=== PATIENT | female | born 1965 | race Caucasian/White ===

== ENCOUNTER 2018-05-18 04:49 | Inpatient (IN) | payer OTHER ==
[~2018-05-18] VITALS: Ht 177.8 cm; Wt 113.4 kg
[2018-05-18] MEDS ORDERED: METFORMIN HCL500 M2 PO (05:38)
[2018-05-18] MEDS ORDERED: LOSARTAN-HCTZ1 EAC2 PO (05:38)
[2018-05-18] MEDS ORDERED: PRAVASTATIN SOD10 MG PO (05:39)
[2018-05-18] MEDS ORDERED: SERTRALINE HCL50 MG PO (05:39)
--- NOTE | 2018-05-18 09:00 | NUR ---
PATIENT TO FLOOR, APPLIED SCDS, AND PROVIDED EDUCATION ON SURGERY AND PROVIDED PACKET. PATIENT VERBALIZED UNDERSTANDING. PROVIDED IS. PATIENT NPO. FULL BODY ASSESMENT DONE. NO COMPLAINTS OF PAIN AT THIS TIME. PATIENT RESTING WITH EYES CLOSED, KINJAL AT BEDSIDE.
--- NOTE | 2018-05-18 10:00 | NUR ---
DR. FERRARI ROUNDED ON PATIENT, PLANS FOR SURGERY TODAY. PATIENT DENIES ANY NEEDS AT THIS TIME.
--- NOTE | 2018-05-18 11:12 | NUR ---
PT DECLINED SHOWER. PT WILL WIPE WITH CHLOROHEXADINE WIPES BEFORE SURGERY INSTEAD.
--- NOTE | 2018-05-18 12:25 | NUR ---
MED REC COMPLETE
--- NOTE | 2018-05-18 14:04 | NUR ---
PT USED CHLOROHEXADINE WIPES. NEW GOWN AND SOCKS GIVEN.
--- NOTE | 2018-05-18 15:30 | NUR ---
PATIENT VOIDING 200 PLUS SOME THAT MISSED HAT. APPEARS CONCENTRATED. NOTIFIED DR. FERRARI, NEW ORDER FOR LR BOLUS. PATIENT RESTING BACK, NO COMPLAINTS OF PAIN. UP AMBULATING IN ROOM. AT BEDSIDE. VS STABLE. STARTED NEW IV TO LEFT HAND FOR SURGERY.
--- NOTE | 2018-05-18 17:04 | NUR ---
PLAN CHANGED FOR PATIENT TO HAVE SURGERY TOMORROW, MAY HAVE CLEAR FLUIDS UNTIL MIDNIGHT. PATIENT TOLERATING WELL. DC RIGHT AC IV, SECONDARY TO EXTREME DISCOMFORT. CBG 141 AT DINNER, NOW ON SLIDING SCALE.
--- NOTE | 2018-05-18 18:14 | NUR ---
PATIENT UP AMBULATING IN HALLS, NOTED RIGHT HAND SWELLING. IMPROVED WITH AMBULATING AND ELEVATING HAND ON PILLOWS. LUNG SOUNDS CLEAR, PATIENT VOIDING ADEQUATE AMOUNTS OF URINE, COLOR IMPROVING. NO COMPLAINTS OF PAIN. CALL LIGHT WITHIN REACH.
--- NOTE | 2018-05-18 20:04 | NUR ---
PATIENT IN BED WATCHING TV WITH AND HAVING NO PAIN. IV INFUSING AND WNL. GIVEN 2 CUPS OF SUGAR FREE JELLO AT PATIENT'S REQUEST.
--- NOTE | 2018-05-18 21:10 | NUR ---
PATIENT RESTING QUIETLY WATCHING TV WITH , GISELL STONE, PATIENT HAS NO C/O PAIN.
--- NOTE | 2018-05-18 21:11 | HP ---
[facility] [address], [place] [address] Signed ADMISSION DATE: 05/18/2018 REASON FOR ADMISSION: Acute calculous cholecystitis. HISTORY OF PRESENT ILLNESS: This 53-year-old morbidly obese woman is accompanied by her . She presented to the emergency room with complaints of lower chest and upper abdominal pain, and back pain, and left shoulder pain, which began last night about 6 o'clock. She has had episodes of abdominal pain in the upper abdomen several times, but these usually been resolved after a day or so of rest. Her evaluation in the emergency room by Dr. Chavez included ultimately a gallbladder ultrasound. Once a cardiac workup was found to be negative for signs of cardiac ischemia. She was noted to have gallstones in the neck of the gallbladder with distended gallbladder. She is admitted for acute calculous cholecystitis. PAST MEDICAL HISTORY: Significant primarily for morbid obesity. She does have diabetes for which she takes metformin. She also has hypertension and dyslipidemia. CURRENT MEDICATIONS: Include: 1. Metformin 1500 mg p.o. daily. 2. Losartan and hydrochlorothiazide 100/12.5 mg p.o. daily. 3. Pravastatin 10 mg p.o. daily. 4. Sertraline 50 mg p.o. daily. SOCIAL HISTORY: She is . She has 4 children. The youngest is 21 years of age. 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 REVIEW OF SYSTEMS: She denies any shortness of breath or chest pain. Abdominal pain has largely subsided at this time. She is quite thirsty, however. PHYSICAL EXAMINATION: GENERAL: This is a morbidly obese white woman, who looks comfortable and is nontoxic at the moment. VITAL SIGNS: Temperature 98.1, pulse 70, blood pressure 130/70, and O2 saturation 96%. NECK: Shows no thyromegaly or cervical adenopathy. Trachea is midline. She has dry mucous membranes. Electronically Signed By: IMANI FERRARI MD 05/18/182110 PATIENT NAME: SHERRIE BARRETT HISTORY AND PHYSICAL DATE OF : 63 REPORT #: [id number] PHYSICIAN: IMANI FERRARI MD PCP: MARCUS SHELBY REPORT IS CONFIDENTIAL AND NOT TO BE RELEASED WITHOUT AUTHORIZATION [facility] [address], [place] [address] Signed CHEST: Shows diminished breath sounds, but no wheeze or rhonchi. HEART: Regular. I detect no murmur. ABDOMEN: Quite morbidly obese, soft. There is mild tenderness in the epigastric and right subcostal area. EXTREMITIES: No clubbing, cyanosis, or edema. LABORATORY DATA: Showed a white count of 9.5, hematocrit 40.8, and platelets 203,000. Ultrasound images were reviewed, which shows at least one single large gallstone in the infundibulum. Gallbladder wall is not thickened. Gallstone shadows quite markedly. ASSESSMENT: Her clinical and ultrasonographic findings are highly consistent with acute calculous cholecystitis. Her lab studies show a normal Chem profile, though glucose was elevated at 246. Her troponin is less than 0.01. Liver enzymes are normal. Amylase is 26. I discussed with him of these illustrations and so forth the pathophysiology of biliary disease and recommendation of treatment to include cholecystectomy, preferably by laparoscopic approach. The risks of bleeding, infection, bile duct injury, need for open procedure, need for common duct exploration either open or laparoscopic were all reviewed in detail. She understands and wished to proceed. At present, she is still somewhat dehydrated. Needs additional fluid administered. She is on antibiotics and her symptoms have improved since admission. We will hope to perform cholecystectomy today if at all possible. MD JON Main/REILLY /[id number] cc: AGAPITO Tom MD Electronically Signed By: IMANI FERRARI MD 05/18/182110 PATIENT NAME: SHERRIE BARRETT LAZARO HISTORY AND PHYSICAL DATE OF : 63 REPORT #: [id number] PHYSICIAN: IMANI FERRARI MD PCP: MARCUS SHELBY REPORT IS CONFIDENTIAL AND NOT TO BE RELEASED WITHOUT AUTHORIZATION [address] [address] Signed Copies: MARCUS SHELBY KELLY DEAN MD ~ Electronically Signed By: IMANI FERRARI MD 05/18/18 2111 PATIENT NAME: MART BARRETTCourt WILLIS HISTORY AND PHYSICAL DATE OF : 63 REPORT #: [id number] PHYSICIAN: IMANI FERRARI MD PCP: MARCUS SHELBY REPORT IS CONFIDENTIAL AND NOT TO BE RELEASED WITHOUT AUTHORIZATION
--- NOTE | 2018-05-18 22:30 | NUR ---
CALLED FOR HADLEY MEDICATION PATIENT ONLY HAD MORPHINE ORDERD FOR PAIN. MOTRIN 600MG PO Q6HRS PRN OR 650MG TYLENOL Q6HRS FOR PAIN ORDERS GIVEN AND READ BACK.
--- NOTE | 2018-05-18 22:55 | NUR ---
PATIENT GOT 600MG PO MOTRIN FOR HER HADLEY AND OTHERWISE IS PAIN FREE. IN THE ROOM ON THE COUCH SLEEPING.
--- NOTE | 2018-05-18 23:18 | EKG ---
[facility] [address] [facility] [place] [address] Signed Normal sinus rhythm Normal ECG No previous ECGs available Confirmed by NANNETTE MONTANO MD ([id number]) on 05/18/2018 11:18:30 PM Electronically Signed By: NANNETTE MONTANO MD 05/18/18 2318 PATIENT NAME: SHERRIE BARRETT LAZARO Electrocardiogram DATE OF : 63 PHYSICIAN: NANNETTE MONTANO MD REPORT #: [id number] REPORT IS CONFIDENTIAL AND NOT TO BE RELEASED WITHOUT AUTHORIZATION
--- NOTE | 2018-05-19 | NUR ---
PATIENT HAS HAD 2 CUPS ICE CHIPS, SOME WATER, AND 6 CUPS OF JELLO AND IS NOW NPO.
--- NOTE | 2018-05-19 02:00 | NUR ---
PATIENT RESTING QUIETLY, RESPIRATIONS EVEN AND REGULAR AT 16, EYES CLOSED, ASLEEP ON THE COUCH.
--- NOTE | 2018-05-19 02:56 | NUR ---
PATIENT ASSESSMENT DONE. PATIENT DOING WELL, NO C/O PAIN, HADLEY GONE. PATIENT SAYS SHE HAS BEEN SLEEPING, BUT UP 2 VOID X2. PATIENT HAS BEEN NPO SINCE MIDNIGHT AND IS GOING TO TRY AND GET SOME MORE SLEEP NOW.
--- NOTE | 2018-05-19 05:20 | NUR ---
PATIENT RESTING QUIETLY, EYES CLOSED, RESPIRATIONS EVEN AND REGULAR AT 16. REMAINS SLEEPING ON THE COUCH. PATIENT HAS BEEN INDEPENDENT ALL NIGHT. GETS HER SELF UP TO THE BATHROOM AND BACK TO BED. NPO SINCE MIDNIGHT. ID-OP CHECKLIST PARTIALLY FILLED OUT FOR SURGERY. LR ON STRAIGHT TUBING IN THE ROOM. PATIENT HAS HAD NO C/O PAIN EXCEPT FOR A HEADACHE THAT WAS FIXED BY SOME MOTRIN.
--- NOTE | 2018-05-19 07:39 | NUR ---
PATIENT RESTING IN BED, CALL LIGHT IN REACH, FAMILY IN ROOM. PATIENT REFUSED AM CARE AT THIS TIME, AM CARE SET UP IN BATHROOM FOR PATIENT TO USE AT A LATER TIME.
--- NOTE | 2018-05-19 07:45 | NUR ---
Pt resting in bed, awoke to verbal stimuli. Pt denies pain. Pt voiding q/s urine output. IV fluids running and scd's intact. Personal supplies and call light within reach. No needs at this time.
--- NOTE | 2018-05-19 09:41 | NUR ---
PATIENT TOOK A SHOWER WITH PRESURGICAL CLEANSE, PATIENT SITTING UP IN BED DRESSED IN CLEAN GOWN, CALL LIGHT IN REACH. NO OTHER NEEDS AT THIS TIME.
--- NOTE | 2018-05-19 10:00 | NUR ---
Pt left unit to surgery.
--- NOTE | 2018-05-19 11:40 | NUR ---
05/19/18 1140 Maria G Langfodr 1134-PATIENT ARRIVED TO PACU ON 6L MASK RR EVEN. PATIENT REACTIVE TO VOICE OPENING EYES. GLUCOSE CHECKED 212. PATIENT NODS HEAD NO WHEN ASKED IF IN PAIN. 4 LAP SITES TO ABDOMEN SMALL AMT OF SHADOWING ON RLQ.
--- NOTE | 2018-05-19 12:40 | NUR ---
PT BACK FROM SURGERY. VITAL SIGNS TAKEN, PT ON 2L OXYGEN PER NC; SAT LEVEL 98%. PT REPORTS PAIN AT 4/10, TOLERABLE. OFFERED WATER, JELLOW AND SOUP. BS TAKEN; WILL ADMIN ONCE PT TOLERATING FOOD. IV FLUIDS RUNNING; LR@125ML/HR. PT AWAKE, ALERT AND ORIENTED.X4 LAP SITES, GLUED AND COVERED; SMALL SHADOWING ON AMILICUS DRESSING. PERSONAL SUPPLIES AND CALL LIGHT WITHIN REACH OF PT. NO NEEDS AT THIS TIME.
--- NOTE | 2018-05-19 14:23 | NUR ---
PATIENT RESTING IN BED, FAMILY IN ROOM. CALL LIGHT IN REACH. NO OTHER NEEDS AT THIS TIME.
--- NOTE | 2018-05-19 14:30 | NUR ---
Pt sleeping at this time, resp even and non labored. 02 sat level 95% on 2l nc. Pt appears to be comfortable at this time. Cont pulse ox intact. vs stable and afebrile. Pt's at bedside. Pt tolerated lunch well. Personal supplies and call light within reach.
--- NOTE | 2018-05-19 15:49 | NUR ---
Pt resting at this time, resp even and non labored. Pt on 2l nc, sat level 96%. Pt appears comfortable, flacc 0/10. Personal supplies and call light within reach. at bedside.
--- NOTE | 2018-05-19 16:41 | NUR ---
PT TOLERATED ONE LAP AROUND UNIT. ONE TAB PERCOCET 7/325MG PO ADMIN FOR 6/10 PAIN. PT ON RA, RESP EVEN AND NON LABORED. SUPPERIOR LAP SITE LEAKING SCANT SAROSANG FLUID. REINFORCED SITE WITH DRESSING. WILL CONTINUE TO MONITOR. PERSONAL SUPPLIES AND CALL LIGHT WITHIN REACH OF PT.
--- NOTE | 2018-05-19 17:59 | NUR ---
PATIENT RESTING IN BED, FAMILY IN ROOM. CALL LIGHT IN REACH. NO OTHER NEEDS AT THIS TIME.
--- NOTE | 2018-05-19 18:07 | NUR ---
PT ON RA. ADA DIET. LR@125ML/HR. 1PA. PERCOCET AND IBUPROFEN FOR PAIN. BS CHECKS WITH S/S.
--- NOTE | 2018-05-19 18:15 | OR ---
[facility] [address], [place] [address] Signed DATE OF OPERATION: 05/19/2018 SURGEON: Imani Ferrari MD PREOPERATIVE DIAGNOSES: 1. Acute calculous cholecystitis. 2. Morbid obesity. POSTOPERATIVE DIAGNOSES: 1. Acute calculous cholecystitis. 2. Morbid obesity. PROCEDURES: 1. Laparoscopic cholecystectomy with intraoperative cholangiogram. 2. Surgeon-directed fluoroscopy. ANESTHESIA: General endotracheal; Vibha Babb CRNA; and local 10 mL of 0.25% Marcaine with epinephrine. INDICATION: This 53-year-old morbidly obese white woman has had recurrent bouts of upper abdominal pain over the past several months. She presented to the emergency room with severe unrelenting upper abdominal pain. She was evaluated by Dr. Chavez and evaluation included a gallbladder ultrasound, which showed at least one large gallstone and findings consistent with acute cholecystitis. A cardiac workup was negative. She was admitted, has been given fluid resuscitation, intravenous antibiotics, and parenteral pain medication and is now at this point, ready for cholecystectomy. The risks of bleeding, infection, bile duct injury, need for open procedure, and need for other indicated procedures were reviewed in detail. She understands and wished to proceed. FINDINGS: Indeed, the gallbladder was edematous and acutely inflamed. The liver had mild steatosis, but no sign of cirrhotic change. A very distended gallbladder was noted though decompression was not required. Cholecystectomy was performed without problem showing a large gallstone in the infundibulum. Mucosa was acutely inflamed. Intraoperative cholangiogram was normal. COMPLICATIONS: There were no complications. Electronically Signed By: IMANI FERRARI MD 05/19/18 1815 PATIENT NAME: SHERRIE BARRETT OPERATIVE REPORT DATE OF : 63 REPORT #: [id number] PHYSICIAN: IMANI FERRARI MD PCP: MARCUS SHELBY REPORT IS CONFIDENTIAL AND NOT TO BE RELEASED WITHOUT AUTHORIZATION [facility] [address] [place], [place] [address] Signed DESCRIPTION OF PROCEDURE: The patient was brought to the operating room, given a general endotracheal anesthetic. Preoperative antibiotic Ancef had been given. Sequential compression device stockings used and heparin subcutaneously administered. The abdomen was prepared with a chlorhexidine solution. She had a very thick abdominal pannus. An infraumbilical incision was made and using an open Elaine cannula technique, pneumoperitoneum was achieved to a level of 14 mmHg of carbon dioxide gas. Intraabdominal inspection showed no sign of ascites or carcinomatosis. Examination showed the liver to be with mild fatty infiltration. The apex of the gallbladder was edematous and willis in appearance. Three additional trocars were placed in usual configuration in the subxiphoid, right midclavicular, and right anterior axillary line. The gallbladder was elevated cephalad and found to be markedly distended. The gallbladder was grasped in the midportion so as to better elevate the gallbladder. The head of the table was elevated and left side down. With blunt and electrocautery dissection, the triangle of Calot was dissected free ultimately identifying well the cystic duct. Once the cystic duct was well cleared, a clip was applied across the gallbladder cystic duct junction. A transverse choledochotomy was made in the cystic duct. Egress of thickened yellow bile was noted. Using an Lal type cholangiocatheter, intraoperative cholangiography was undertaken showing free flow of contrast in biliary tree with prompt emptying into the duodenum. There was no sign of filling defect or other abnormality. The catheter was removed and the cystic duct was triply clipped and divided and the gallbladder dissected free in a retrograde fashion. This was primarily with electrocautery. The gallbladder was placed in an endobag and extracted through the infraumbilical port site without problem, opened on the back table and found to have acute inflammation of mucosa, no sign of neoplasm, and a single large gallstone. Photographs were taken. Irrigation was undertaken in subhepatic space. There was no sign of bile leak, bleeding, or other problems. Excess irrigation fluid was suctioned free. The trocars were then removed under direct visualization showing no sign of bleeding. The infraumbilical fascial incision reapproximated with interrupted 0 Vicryl suture. A 10 mL of 0.25% Marcaine with epinephrine was injected locally into the incision sites. The skin was then closed with interrupted 2-0 Vicryl. Steri-Strips were applied. The patient was ultimately extubated and transferred to recovery room in good condition and suffered no complication. Sponge, needle, and instrument counts reported as correct x3. Imani Ferrari MD Electronically Signed By: IMANI FERRARI MD 05/19/18 1815 PATIENT NAME: SHERRIE BARRETT LAZARO OPERATIVE REPORT DATE OF : 63 REPORT #: [id number] PHYSICIAN: IMANI FERRARI MD PCP: MARCUS SHELBY REPORT IS CONFIDENTIAL AND NOT TO BE RELEASED WITHOUT AUTHORIZATION [address] [address] Signed /REILLY /[id number] cc: AGAPITO Tom MD Copies: MARCUS SHELBY KELLY DEAN MD ~ Electronically Signed By: IMANI FERRARI MD 05/19/18 1815 PATIENT NAME: SHERRIE BARRETT OPERATIVE REPORT DATE OF : 63 REPORT #: [id number] PHYSICIAN: IMANI FERRARI MD PCP: MARCUS SHELBY REPORT IS CONFIDENTIAL AND NOT TO BE RELEASED WITHOUT AUTHORIZATION
--- NOTE | 2018-05-19 19:24 | NUR ---
RECEIVED REPORT FROM MICHAEL HOUGH. pt ALERT AND AWAKE, AT BEDSIDE. NO REQUESTS AT THIS TIME. CALL LIGHT WITHIN REACH. WHITEBOARD UPDATED.
--- NOTE | 2018-05-19 22:05 | NUR ---
ASSESSMENT AND MEDICATIONS DUE. ASSESSMENT DONE. pt REPORTING 5/10 PAIN. PRN PAIN MEDICATION GIVEN (SEE MAR). LAP SITES HAD CRUSTY DRAINAGE OTHER GLASS DRY AND INTACT. MEDICATIONS GIVEN (SEE MAR). NO REQUESTS AT THIS TIME. CALL LIGHT WITHIN REACH.
--- NOTE | 2018-05-19 22:17 | NUR ---
ROUNDED CHARGE. PATIENT IS RESTING IN BED. FAMILY IN THE ROOM. NO COMMENTS, QUESTIONS OR CONCERNS. NOTED CALL LIGHT IN REACH.
--- NOTE | 2018-05-20 00:17 | NUR ---
ROUNDED ON pt. RESTING WITH EYES CLOSED, RESPIRATIONS REGULAR, RATE = 16. CALL LIGHT WITHIN REACH.
--- NOTE | 2018-05-20 00:27 | NUR ---
CALL LIGHT ON. IV PUMP BEEPING. ERROR CLEARED. NO REQUESTS AT THIS TIME. CALL LIGHT WITHIN REACH.
--- NOTE | 2018-05-20 02:35 | NUR ---
CALL LIGHT ON. THERMOSTAT ADJUSTED. ASSESSMENT DONE. NO NEW DRAINAGE AT LAP SITES. DENIES PAIN. CALL LIGHT WITHIN REACH. NO FURTHER REQUESTS AT THIS TIME.
--- NOTE | 2018-05-20 04:27 | NUR ---
CALL LIGHT ON. IV PUMP BEEPING. NEW BAG OF FLUIDS HUNG (SEE MAR). pt RESTING WITH EYES CLOSED. RESPIRATIONS REGULAR. CALL LIGHT WITHIN REACH.
--- NOTE | 2018-05-20 05:11 | NUR ---
pt RESTED DURING SHIFT. PERCOCET X1. SBA. IV ABX, LR RUNNING AT 125 MLS/HR. ACCUCHECKS WITH SLIDING SCALE INSULIN. TOLERATING ADA DIET. ON ROOM AIR. USES CALL LIGHT APPROPRIATELY.
--- NOTE | 2018-05-20 10:11 | NUR ---
PATIENT'S IV SALINE LOCKED AT THIS TIME AND GOWN CHANGED. SHE DENIES ANY PAIN AND IS UP AMBULATING WITH HER AROUND THE ROOM.
--- NOTE | 2018-05-20 11:34 | NUR ---
PT RESTING IN BED-ALERT, ORIENTED AND SUPPORTED BY HER . PAIN IS CONTROLLED LONG SHE IS STILL IN BED. WHEN SHE GETS UP AND MOVES, PAIN INCREASES DRAMATICALLY. DC IS SCHEDULED FOR TODAY, I ENCOURAGED PT TO DISCUSS PAIN ISSUE WITH RN BEFORE DC. EXTENDED A BLESSING, WILL FOLLOW NEEDED
[2018-05-20] MEDS ORDERED: IBUPROFEN600 MG PO (11:51)
[2018-05-20] MEDS ORDERED: MAPAP325 MG PO (11:52)
[2018-05-20] MEDS ORDERED: OXYCODON-ACETA1 EAC2 PO (11:52)
--- NOTE | 2018-05-20 12:40 | NUR ---
PATIENT GIVEN D/C INSTRUCTIONS QUESTIONS ANSWERED AND PHARMACY IN TO GO OVER MEDICATION WITH THE PATIENT.
== END 2018-05-20 12:55 | disposition home or self-care (01) | DRG 419 ==
LOC: ED 04:49 → MS 04:51
PROVIDERS: ADMIT Surgery
PROC: BF101ZZ Fluoroscopy of Bile Ducts using Low Osmolar Contrast (ICD-10-PCS; 2018-05-19)
PROC: 0FT44ZZ Resection of Gallbladder, Percutaneous Endoscopic Approach (ICD-10-PCS; principal; 2018-05-19 10:00)
DX: K80.00 Calculus of gallbladder with acute cholecystitis without obstruction (principal); E86.0 Dehydration; E11.9 Type 2 diabetes mellitus without complications; I10 Essential (primary) hypertension; E78.5 Hyperlipidemia, unspecified; K76.0 Fatty (change of) liver, not elsewhere classified; E66.01 Morbid (severe) obesity due to excess calories; Z88.0 Allergy status to penicillin; Z79.84 Long term (current) use of oral hypoglycemic drugs; Z79.899 Other long term (current) drug therapy; Z82.49 Family history of ischemic heart disease and other diseases of the circulatory system; Z68.35 Body mass index [BMI] 35.0-35.9, adult
CPT/HCPCS: 00790; 71045; 74300; 76705; 80053; 81001; 83690; 84484; 85025; 87088; 93005; 93010; 94762; 96374; 96375; 96376; 99285-25; G0378; J0330; J0690; J1100; J1170; J1644; J1815; J1885; J2405; J2704; J3010; J7120; Q9967

== ENCOUNTER 2019-01-09 13:44 | Emergency (ER) | payer OTHER ==
[~2019-01-09] VITALS: Ht 177.8 cm; Wt 113.4 kg
[~2019-01-09 13:44] MED LIST: IBUPROFEN600 MG PO; LOSARTAN-HCTZ1 EAC2 PO; MAPAP325 MG PO; METFORMIN HCL500 M2 PO; OXYCODON-ACETA1 EAC2 PO; PRAVASTATIN SOD10 MG PO; SERTRALINE HCL50 MG PO
[2019-01-09] MEDS ORDERED: ULTRAM50 MG PO (14:15)
== END 2019-01-09 18:55 | disposition home or self-care (01) ==
LOC: ED 13:44
DX: S63.501A Unspecified sprain of right wrist, initial encounter (principal); S93.402A Sprain of unspecified ligament of left ankle, initial encounter; I10 Essential (primary) hypertension; E11.9 Type 2 diabetes mellitus without complications; Z88.0 Allergy status to penicillin; X50.1XXA Overexertion from prolonged static or awkward postures, initial encounter
CPT/HCPCS: 73110; 73610; 99283

== ENCOUNTER 2020-05-28 03:59 | Emergency (ER) | payer OTHER ==
[~2020-05-28] VITALS: Ht 177.8 cm; Wt 129.3 kg
[~2020-05-28 03:59] MED LIST changes: +ULTRAM50 MG PO
[2020-05-28] MEDS ORDERED: GLUCOPHAGE1000 MG PO (04:28)
[2020-05-28] MEDS ORDERED: FLOMAX0.4 MG PO (05:09)
[2020-05-28] MEDS ORDERED: HYDROCODON-ACE1 EA10 PO (05:09)
== END 2020-05-28 05:30 | disposition home or self-care (01) ==
LOC: ED 03:59
DX: N13.2 Hydronephrosis with renal and ureteral calculous obstruction (principal); E11.9 Type 2 diabetes mellitus without complications; I10 Essential (primary) hypertension; E78.00 Pure hypercholesterolemia, unspecified; Z88.0 Allergy status to penicillin; Z79.84 Long term (current) use of oral hypoglycemic drugs
CPT/HCPCS: 74176; 80053; 81001; 85025; 99284-25